=== PATIENT | female | born 1990 | race Caucasian/White ===

== ENCOUNTER 2016-08-16 07:34 | Emergency (ER) | payer BC ==
[2016-08-16] MEDS ORDERED: SODIUM CHLORIDE 0.9% 1,000 ML IV STA (08:22)
[2016-08-16] MEDS ORDERED: LORazepam 2 MG/ML SYRINGE IV STA (08:22)
[2016-08-16 08:42] LABS: Basophils # (A) 0.1 k/uL (0-0.2); Basophils % (A) 1 %; CH 29.8; CHCM 32.5; Eosinophils # (A) 0.1 k/uL (0-0.7); Eosinophils % (A) 1 %; HDW 2.21; Luc # (Auto) 0.25; Luc % (Auto) 2; Lymphocytes # (A) 4.5 k/uL (1.0-4.8); Lymphocytes % (A) 30 %; MCH 29.3 pg (25.0-35.0); MCHC 31.8 g/dL (31.0-37.0); MCV 92.2 fL (80.0-100.0); Mean Platelet Volume 8.8; Monocytes % (A) 6 %; Neutrophils # (A) 9.2 k/uL (1.3-7.7); Neutrophils % (A) 61 %; RBC 4.77 m/uL (3.80-5.40); RDW 13.3 % (11.5-15.5); WBC 15.2 k/uL (3.8-10.6); WBC (Perox) 14.71
--- NOTE | 2016-08-16 08:47 | XR ---
EXAMINATION TYPE: XR chest 2V DATE OF EXAM: 08/16/2016 8:40 AM COMPARISON: 03/10/2016 HISTORY: 26-year-old female with chest pain for several weeks and weakness TECHNIQUE: PA and lateral views FINDINGS: The cardiomediastinal silhouette, aorta, and pulmonary vasculature are within normal limits. There ma y be minimal scattered peribronchial cuffing. Old healed left-sided rib fracture deformity. No consol idation or pleural effusion. IMPRESSION: Minimal scattered peribronchial cuffing could reflect bronchitis or chronic asthma. No focal airspace disease.
--- NOTE | 2016-08-16 08:55 | ED ---
General Adult HPI - General Chief complaint: Arrhythmia/Palpitations Stated complaint: Chest palps Time Seen by Provider: 08/16/16 07:46 Source: patient, RN notes reviewed, old records reviewed Mode of arrival: ambulatory Limitations: no limitations - History of Present Illness Initial comments: This is a 26-year-old female ER for evaluation of probable anxiety but worried about heart rate. Chest pain. Patient has no medical history aside from smoking smoking weed. Patient coming in for being anxious regarding a low heart rate that she noticed on her fit bit earlier today, she states episodic chest pain and heart fluttering in her chest worse when she lays down, no improving factors. At this time she seems to be without symptoms. She does appear anxious no fevers cough or congestion no travel history. She has not been prior evaluated for these symptoms - Related Data Home Medications Medication Instructions Recorded Confirmed Albuterol Inhaler [Ventolin Hfa 1 - 2 puff INHALATION RT-Q6H PRN 08/16/16 Inhaler] Naproxen 500 mg PO DAILY PRN 08/16/16 08/16/16 Allergies Allergy/AdvReac Type Severity Reaction Status Date / Time codeine Allergy Nausea & Verified 08/16/16 08:18 Vomiting cortisone Allergy Unknown Verified 08/16/16 08:18 sumatriptan [From Imitrex] Allergy Unknown Verified 08/16/16 08:18 Review of Systems ROS Statement: Those systems with pertinent positive or pertinent negative responses have been documented in the HPI. ROS Other: All systems not noted in ROS Statement are negative. Past Medical History Past Medical History: Asthma Additional Past Medical History / Comment(s): bronchitis History of Any Multi-Drug Resistant Organisms: None Reported Past Surgical History: Orthopedic Surgery Additional Past Surgical History / Comment(s): left knee Past Psychological History: Anxiety Smoking Status: Current every day smoker Past Alcohol Use History: Rare Past Drug Use History: Marijuana General Exam Limitations: no limitations General appearance: anxious Head exam: Present: atraumatic, normocephalic, normal inspection Eye exam: Present: normal appearance, PERRL, EOMI. Absent: scleral icterus, conjunctival injection, periorbital swelling ENT exam: Present: normal exam, mucous membranes moist Neck exam: Present: normal inspection. Absent: tenderness, meningismus, lymphadenopathy Respiratory exam: Present: normal lung sounds bilaterally. Absent: respiratory distress, wheezes, rales, rhonchi, stridor Cardiovascular Exam: Present: regular rate, normal rhythm, normal heart sounds. Absent: systolic murmur, diastolic murmur, rubs, gallop, clicks GI/Abdominal exam: Present: soft, normal bowel sounds. Absent: distended, tenderness, guarding, rebound, rigid Extremities exam: Present: normal inspection, full ROM, normal capillary refill. Absent: tenderness, pedal edema, joint swelling, calf tenderness Back exam: Present: normal inspection Neurological exam: Present: alert, oriented X3, CN II-XII intact Psychiatric exam: Present: normal affect, normal mood Skin exam: Present: warm, dry, intact, normal color. Absent: rash Course Vital Signs 08/16/16 08/16/16 08/16/16 07:35 08:54 09:24 Temperature 97.8 F Pulse Rate 101 H 70 68 Respiratory 20 18 18 Rate Blood Pressure 143/80 129/72 143/75 O2 Sat by Pulse 100 97 92 L Oximetry - Reevaluation(s) Reevaluation #1: 08/16/16 10:34 Patient is without syncopal event, without low blood pressure, no notes noted bradycardia here in emergency room EKG Findings - EKG Comments: EKG Findings:: EKG shows normal sinus rhythm rate 78, NC 154, QRS 86, QTC 446 Medical Decision Making - Medical Decision Making Worrisome [id number] palpitations, chest pain episodic for a month or so. Episodic bradycardia nothere in the ER, patient's test at this time appointment , labwork negative EKG is negative. Patient can be discharged home, patient did have increased anxiety which is improved - Lab Data Result diagrams: 08/16/16 07:48 08/16/16 07:48 Lab Results 08/16/16 08/16/16 08/16/16 Range/Units 07:48 07:48 07:48 WBC 15.2 H (3.8-10.6) k/uL RBC 4.77 (3.80-5.40) m/uL Hgb 14.0 (11.4-16.0) gm/dL Hct 44.0 (34.0-46.0) % MCV 92.2 (80.0-100.0) fL MCH 29.3 (25.0-35.0) pg MCHC 31.8 (31.0-37.0) g/dL RDW 13.3 (11.5-15.5) % Plt Count 244 (150-450) k/uL Neutrophils % 61 % Lymphocytes % 30 % Monocytes % 6 % Eosinophils % 1 % Basophils % 1 % Neutrophils # 9.2 H (1.3-7.7) k/uL Lymphocytes # 4.5 (1.0-4.8) k/uL Monocytes # 1.0 (0-1.0) k/uL Eosinophils # 0.1 (0-0.7) k/uL Basophils # 0.1 (0-0.2) k/uL PT (9.0-12.0) sec INR (<1.1) APTT (22.0-30.0) sec D-Dimer (<0.60) mg/L FEU Sodium 143 (137-145) mmol/L Potassium 3.8 (3.5-5.1) mmol/L Chloride 104 (98-107) mmol/L Carbon Dioxide 24 (22-30) mmol/L Anion Gap 15 mmol/L BUN 16 (7-17) mg/dL Creatinine 0.78 (0.52-1.04) mg/dL Est GFR (MDRD) Af Amer >60 (>60 ml/min/1.73 sqM) Est GFR (MDRD) Non-Af >60 (>60 ml/min/1.73 sqM) Glucose 96 (74-99) mg/dL Calcium 9.1 (8.4-10.2) mg/dL Phosphorus 4.3 (2.5-4.5) mg/dL Magnesium 1.9 (1.6-2.3) mg/dL Total Bilirubin 0.4 (0.2-1.3) mg/dL AST 17 (14-36) U/L ALT 35 (9-52) U/L Alkaline Phosphatase 78 (38-126) U/L Total Creatine Kinase 99 (30-135) U/L CK-MB (CK-2) 0.5 (0.0-2.4) ng/mL CK-MB (CK-2) Rel Index 0.5 Troponin I <0.012 (0.000-0.034) ng/mL NT-Pro-B Natriuret Pep pg/mL Total Protein 7.4 (6.3-8.2) g/dL Albumin 4.3 (3.5-5.0) g/dL TSH 5.500 H (0.465-4.680) mIU/L 08/16/16 08/16/16 Range/Units 07:48 07:48 WBC (3.8-10.6) k/uL RBC (3.80-5.40) m/uL Hgb (11.4-16.0) gm/dL Hct (34.0-46.0) % MCV (80.0-100.0) fL MCH (25.0-35.0) pg MCHC (31.0-37.0) g/dL RDW (11.5-15.5) % Plt Count (150-450) k/uL Neutrophils % % Lymphocytes % % Monocytes % % Eosinophils % % Basophils % % Neutrophils # (1.3-7.7) k/uL Lymphocytes # (1.0-4.8) k/uL Monocytes # (0-1.0) k/uL Eosinophils # (0-0.7) k/uL Basophils # (0-0.2) k/uL PT 10.0 (9.0-12.0) sec INR 1.0 (<1.1) APTT 25.7 (22.0-30.0) sec D-Dimer 0.48 (<0.60) mg/L FEU Sodium (137-145) mmol/L Potassium (3.5-5.1) mmol/L Chloride (98-107) mmol/L Carbon Dioxide (22-30) mmol/L Anion Gap mmol/L BUN (7-17) mg/dL Creatinine (0.52-1.04) mg/dL Est GFR (MDRD) Af Amer (>60 ml/min/1.73 sqM) Est GFR (MDRD) Non-Af (>60 ml/min/1.73 sqM) Glucose (74-99) mg/dL Calcium (8.4-10.2) mg/dL Phosphorus (2.5-4.5) mg/dL Magnesium (1.6-2.3) mg/dL Total Bilirubin (0.2-1.3) mg/dL AST (14-36) U/L ALT (9-52) U/L Alkaline Phosphatase (38-126) U/L Total Creatine Kinase (30-135) U/L CK-MB (CK-2) (0.0-2.4) ng/mL CK-MB (CK-2) Rel Index Troponin I (0.000-0.034) ng/mL NT-Pro-B Natriuret Pep 197 pg/mL Total Protein (6.3-8.2) g/dL Albumin (3.5-5.0) g/dL TSH (0.465-4.680) mIU/L - Radiology Data Radiology results: report reviewed (Chest x-ray negative for acute disease), image reviewed Disposition Clinical Impression: Palpitations, Bradycardia, Anxiety Disposition: HOME SELF-CARE Condition: Good Instructions: Palpitations (ED), Bradycardia (ED) Referrals: Venkata Andre MD [Primary Care Provider] - 1-2 days
[2016-08-16 08:58] LABS: Partial Thromboplastin Time 25.7 sec (22.0-30.0)
[2016-08-16 09:05] LABS: ALT 35 U/L (9-52); AST 17 U/L (14-36); Alkaline Phosphatase 78 U/L (38-126); Anion Gap 15 mmol/L; Blood Urea Nitrogen 16 mg/dL (7-17); Calcium 9.1 mg/dL (8.4-10.2); Carbon Dioxide 24 mmol/L (22-30); Chloride 104 mmol/L (98-107); Glucose 96 mg/dL (74-99); Magnesium 1.9 mg/dL (1.6-2.3); Non-African American GFR(MDRD) >60 (>60 ml/min/1.73 sqM); Phosphorous 4.3 mg/dL (2.5-4.5); Potassium 3.8 mmol/L (3.5-5.1); Sodium 143 mmol/L (137-145); Total Bilirubin 0.4 mg/dL (0.2-1.3); Total Protein 7.4 g/dL (6.3-8.2)
[2016-08-16 09:09] LABS: Creatine Kinase 99 U/L (30-135)
[2016-08-16 09:21] LABS: Creatine Kinase MB 0.5 ng/mL (0.0-2.4); Troponin I <0.012 ng/mL (0.000-0.034)
[2016-08-16 09:41] VITALS: RESP 18
[2016-08-16 10:35] VITALS: BP 123/68; PULSE 78; TEMP 98.3
== END 2016-08-16 10:38 | disposition home or self-care (01) ==
LOC: EC 07:34
DX: R00.2 Palpitations (principal); R00.1 Bradycardia, unspecified; F41.9 Anxiety disorder, unspecified; F17.200 Nicotine dependence, unspecified, uncomplicated; Z88.5 Allergy status to narcotic agent; Z88.8 Allergy status to other drugs, medicaments and biological substances
CPT/HCPCS: 36415; 85379; 83880; 80053; 82550; 82553; 83735; 84100; 84443; 84484; 85025; 85610; 85730; 71020; 99285; 96374; 96361; J2060; 93005